=== PATIENT | male | born 1980 | race African-American/Black ===

== ENCOUNTER 2020-06-16 10:05 | Day surgery (SDC) | payer OTHER ==
[~2020-06-16 10:05] MED LIST: PROPOFOL INJ 200 MG/20 ML VIAL IV ONE
[2020-06-16] MEDS ORDERED: PROPOFOL INJ 200 MG/20 ML VIAL IV ONE (11:10)
--- NOTE | 2020-06-16 11:33 | Operative Report ---
Operative Report DATE OF SURGERY: 06/16/20 Operative Report: The risk, benefits and alternatives of the procedure including the risk of bleeding, perforation requiring surgery have been explained to the patient in detail and informed consent has been obtained. The patient is brought back to the operating room and placed in left, lateral decubital position. Timeout was called. Propofol medication is administered. A rectal examination is done which did not reveal any masses, tears or fissures. An Olympus videoscope was introduced into the patient's rectum. Scope was then carefully advanced all the way to the cecum. The cecum was identified by the usual anatomical landmarks including the ileocecal valve as well as the appendiceal office. Photodocumentation is obtained. The scope was then sequentially pulled back via the various segments of the colon including the ascending colon, hepatic flexure, transverse colon, splenic flexure, descending colon and finally into the rectosigmoid portions of the colon. Retroflexion maneuver is performed. PREOPERATIVE DIAGNOSIS: Colorectal cancer screening POSTOPERATIVE DIAGNOSIS: Random biopsies right side of the colon rule out collagenous colitis. Hyperplastic polyps noted in the rectum. Internal hemorrhoids OPERATION: Colonoscopy with biopsy SURGEON: MATT GERARD ANESTHESIA: LMAC TISSUE REMOVED OR ALTERED: As noted above. COMPLICATIONS: None. ESTIMATED BLOOD LOSS: None. INTRAOPERATIVE FINDINGS: As noted above. PROCEDURE: Patient tolerated the procedure well. No immediate postprocedure complications are noted. Patient is discharged in good condition. Discharge date 06/16/2020. Discharge diet: Regular. Discharge activity: Regular. 2 to 3-week follow-up to discuss findings. Patient is instructed to call the office or proceed to the emergency room should there be any further problems or questions. Likely can go to 10-year surveillance colonoscopy.
[2020-06-16 12:01] VITALS: BP 128/78
== END 2020-06-16 12:01 | disposition home or self-care (01) ==
LOC: OROUT 10:05
PROVIDERS: ATTEND Internal Medicine Gastroenterology
DX: K64.8 Other hemorrhoids (principal); K52.9 Noninfective gastroenteritis and colitis, unspecified; K62.1 Rectal polyp; G47.33 Obstructive sleep apnea (adult) (pediatric); D86.0 Sarcoidosis of lung; I49.9 Cardiac arrhythmia, unspecified; Z20.822 Contact with and (suspected) exposure to COVID-19; Z79.899 Other long term (current) drug therapy
CPT/HCPCS: 45380; 88305 ×2; 00812; J2704; 812